=== PATIENT | female | born 1990 ===

== ENCOUNTER → 2020-09-21 | Outpatient (CLI) | payer OTHER | LOC: LAB 14:10 → LAB SHORT 14:10 | DX: L08.9 Local infection of the skin and subcutaneous tissue, unspecified (principal); D22.5 Melanocytic nevi of trunk; D22.62 Melanocytic nevi of left upper limb, including shoulder; L81.4 Other melanin hyperpigmentation; L82.1 Other seborrheic keratosis; L81.8 Other specified disorders of pigmentation; D23.71 Other benign neoplasm of skin of right lower limb, including hip; Z71.89 Other specified counseling | CPT/HCPCS: 87070; 87205 ==